=== PATIENT | male | born 1985 | race Caucasian/White ===

== ENCOUNTER 2016-09-09 19:53 | Emergency (ER) | payer BC ==
[2016-09-09 20:08] VITALS: BP 178/95; PULSE 83; TEMP 97.3; BMI 33.7
[2016-09-09] MEDS ORDERED: BUPIVACAINE 0.5% 30 ML VIAL INF ONE (20:15)
[2016-09-09] MEDS ORDERED: DIPHTHERIA AND TETANUS (ADULT) 0.5 ML SYR IM ONE (20:15)
--- NOTE | 2016-09-09 20:15 | EDPRACDOC ---
- General Information Home Medications: Home Medications Cephalexin Monohydrate [Keflex] 500 mg PO Q6H #28 cap 09/09/16 Allergies/Adverse Reactions: Allergies Allergy/AdvReac Type Severity Reaction Status Date / Time No Known Allergies Allergy Verified 09/09/16 20:34 - History of Present Illness Onset: PRESS HELPER HPI: PT STATES HE CUT HIS RIGHT THUMB ON A "VERTICAL BAND SAW", HAS LAC TO FINGER PAD , FROM, NO NUMBNESS OR TINGLING, DENIES OTHER INJURY - Location Right Thumb Mechanism: Reports: Cut, Other (SAW) - Tetanus Status Last Tetanus: No - Pain Pain Severity: Moderate Bleeding: Reports: Controlled Associated Signs & Symptoms: Denies: Loss of Function, Numbness, Weakness ED Past Medical History - History Reviewed Yes Nurses notes reviewed and agree except as marked No Past Medical History: Yes Patient has no past medical history - Social Medical History Smoking Status: Never smoker EDM Review of Systems - Review of Systems Neurological: negative: Numbness, Weakness Musculoskeletal: No Symptoms Reported Integumentary: Wound - Physical Exam Constitutional: Alert (Awake), No apparent distress Oriented to: Time, Person, Place Last recorded Vital Signs: Last Vital Signs Temp 97.3 F L 09/09/16 20:07 Pulse 83 09/09/16 20:07 Resp 20 09/09/16 20:07 BP 178/95 09/09/16 20:07 Pulse Ox 96 09/09/16 20:07 Oxygen Pulse Oxygen Saturation 96 O2 Device Room Air Oxygen Flow Rate Fraction of Inspired Oxygen ( FIO2) - HEENT Head: Normal ( normocephalic) - Integumentary Skin: Warm, Dry, Other (RIGHT THUMB PAD: 2 CM IRREGULAR FLAP LACERATION, MINIMAL ACTIVE BLEEDING) - Neurologic Memory Impaired: Normal Motor Function: Normal (Normal tone, Pulses 2+ No cyanosis or edema, FROM) Cranial Nerve: Normal (CN II-X11 intact sensation, strength 5/5) Cerebellar: Normal Mood Description: Normal Perception: Normal ED Procedures - Suture/Laceration RIGHT THUMB Wound Length (cm): 3 Wound's Depth, Shape: irregular, flap Wound Explored: clean Irrigated w/ Saline (ccs): 30 Betadine Prep?: Yes Anesthesia: 1% Lidocaine, 0.5% Sensorcaine Volume Anesthetic (ccs): 10 (DIGITAL BLOCK) Wound Debrided: minimal Wound Undermining: minimal Wound Margins: Revised Wound Repaired With: Sutures Suture Size/Type: 4:0, prolene Number of Sutures: 10 Layer Closure?: No Sterile Dressing Applied?: Yes - Differential Diagnosis Contusion, Fracture, Laceration - Diagnostic Imaging RIGHT THUMB Image interpreted by: Radiologist RIGHT THUMB - 2+ VIEW COMPARISON: None. FINDINGS: Frontal, oblique, and lateral views obtained. There is a bandage overlying the distal first digit. There is soft tissue injury along the volar aspect of the distal first digit. There is no demonstrable acute fracture or dislocation. There is no appreciable joint space narrowing. Small calcifications in the first MCP joint may represent residua of old trauma. No radiopaque foreign body beyond the overlying bandage distally. IMPRESSION: Soft tissue injury to the volar portion distal aspect first digit with overlying bandage. No other radiopaque foreign body. No acute fracture or dislocation. No apparent arthropathy. Decision Time to Discharge: 21:29 - Departure Disposition: Home Condition: Stable Final Diagnosis: LAC RIGHT THUMB, 3 CM, SIMPLE Instructions: Laceration (ED) Education/Counseling Given To: Patient Education/Counseling Given Regarding: Diagnosis, Treatment, Prognosis, Follow Up Referrals: Jj Otoole MD [Primary Care Provider] - One Week Prescriptions: Cephalexin Monohydrate [Keflex] 500 mg PO Q6H #28 cap Additional Instructions: Keep wound clean and dry, wash daily with soap and water, cover with antibiotic ointment and clean bandage. Have sutures removed in 10-14 days, use Tylenol or Motrin as needed for pain. Return to the ED for any worsening symptoms or concerns.
[2016-09-09] MEDS ORDERED: LIDOCAINE 2% 5 ML (PRESERVATIVE FREE) VIAL INF ONE (20:17)
--- NOTE | 2016-09-09 21:02 | DIRPT ---
CLINICAL DATA: Injury with saw EXAM: RIGHT THUMB - 2+ VIEW COMPARISON: None. FINDINGS: Frontal, oblique, and lateral views obtained. There is a bandage overlying the distal first digit. There is soft tissue injury along the volar aspect of the distal first digit. There is no demonstrable acute fracture or dislocation. There is no appreciable joint space narrowing. Small calcifications in the first MCP joint may represent residua of old trauma. No radiopaque foreign body beyond the overlying bandage distally. IMPRESSION: Soft tissue injury to the volar portion distal aspect first digit with overlying bandage. No other radiopaque foreign body. No acute fracture or dislocation. No apparent arthropathy. Electronically Signed By: Jake Collins III, M.D. On: 09/09/2016 20:59
== END 2016-09-09 21:49 | disposition home or self-care (01) ==
LOC: EDMC 19:53
DX: S61.011A Laceration without foreign body of right thumb without damage to nail, initial encounter (principal); W31.2XXA Contact with powered woodworking and forming machines, initial encounter; Y93.9 Activity, unspecified; Z23 Encounter for immunization
CPT/HCPCS: 12002; 73140; 90714; 99282; J2001; J3490